=== PATIENT | female | born 1990 | race Caucasian/White ===

== ENCOUNTER 2018-04-17 13:15 | Emergency (ER) | payer OTHER ==
[~2018-04-17] VITALS: Ht 160 cm; Wt 63.0 kg
[~2018-04-17 13:15] MED LIST: AMLODIPINE5 M1 PO; ASPIRIN CHILDRE81 MG PO; FAMOTIDINE20 MG PO; FEMARA2.5 MG PO; PREDNISONE PO; ZESTRIL20 MG PO
[2018-04-17 13:19] VITALS: BP 119/82; Ht 160 cm; Wt 63.0 kg
== END 2018-04-17 13:40 | disposition home or self-care (01) ==
LOC: ED 13:15
DX: J30.9 Allergic rhinitis, unspecified (principal); Z88.0 Allergy status to penicillin

== ENCOUNTER 2018-08-07 08:32 | Emergency (ER) | payer OTHER ==
[2018-08-07 08:43] VITALS: Ht 160 cm
[2018-08-07 09:38] LABS: CALCIUM 8.8 mg/dL (8.5-10.1); CARBON DIOXIDE 31.1 mmol/L (21-32); CHLORIDE SERUM 105 mmol/L (98-107); CREATININE SERUM 0.7 mg/dL (0.6-1.0); GFR1 > 60 mL/min; GLUCOSE SERUM 63 mg/dL (74-106); POTASSIUM SERUM 3.4 mmol/L (3.5-5.1); SODIUM SERUM 140 mmol/L (136-145)
[2018-08-07 09:39] LABS: C REACTIVE PROTEIN < 0.2 mg/dL (<=0.9)
[2018-08-07 11:12] LABS: BASOPHIL % 0.9 % (0-2); PLATELET COUNT 136 x10^3mcL (130-400); RED CELL DISTRIBUTION WIDTH 13.9 % (11.5-14.5)
[2018-08-07 11:14] LABS: ERYTHROCYTE SED RATE 9 mm/hr (0-20)
[2018-08-07 11:48] VITALS: BP 117/54
== END 2018-08-07 11:48 | disposition home or self-care (01) ==
LOC: ED 08:32
PROVIDERS: Specialist
DX: R10.2 Pelvic and perineal pain (principal); Z88.0 Allergy status to penicillin; Z98.890 Other specified postprocedural states
CPT/HCPCS: 36415; 87491; 87591

== ENCOUNTER 2019-08-03 18:22 | Emergency (ER) | payer OTHER ==
[~2019-08-03] VITALS: Ht 160 cm; Wt 62.1 kg
[2019-08-03 18:29] VITALS: Ht 160 cm; Wt 62.1 kg
[2019-08-03 20:20] LABS: microscopic required? NO
[2019-08-03 20:26] LABS: urine erythrocyte NEGATIVE (NEGATIVE)
[2019-08-03 20:29] LABS: BASOPHIL % 0.6 % (0-2); PLATELET COUNT 153 x10^3mcL (130-400); RED CELL DISTRIBUTION WIDTH 13.6 % (11.5-14.5)
[2019-08-03 20:44] LABS: CALCIUM 8.9 mg/dL (8.5-10.1); CARBON DIOXIDE 30.9 mmol/L (21-32); CHLORIDE SERUM 103 mmol/L (98-107); CREATININE SERUM 0.6 mg/dL (0.6-1.0); GFR1 > 60 mL/min; GLUCOSE SERUM 86 mg/dL (74-106); POTASSIUM SERUM 3.9 mmol/L (3.5-5.1); SODIUM SERUM 139 mmol/L (136-145)
[2019-08-03 20:44] LABS: AMPHETAMINE QUAL UR NONE DETECTED (See below)
[2019-08-03 20:49] LABS: ALBUMIN 4.2 g/dL (3.4-5.0); ALKALINE PHOSPHATASE 76 U/L (46-116); ALT/SGPT 12 U/L (14-59); AST/SGOT 10 U/L (15-37); CHOLESTEROL 140 mg/dL (<200); HDL CHOLESTEROL 46 mg/dL (40-60); LIPASE 168 IU/L (73-393); TOTAL PROTEIN, SERUM 7.4 g/dL (6.4-8.2)
[2019-08-03 22:01] VITALS: BP 100/53
[2019-08-05 05:08] LABS: RAPID PLASMA REAGIN Non Reactive (Non Reactive)
== END 2019-08-03 22:30 | disposition home or self-care (01) ==
LOC: ED 18:22
PROVIDERS: Emergency Medicine
DX: R07.89 Other chest pain (principal); Z11.3 Encounter for screening for infections with a predominantly sexual mode of transmission; Z88.0 Allergy status to penicillin
CPT/HCPCS: 83880; 85378; 87491; 87591; G0480; J1885; J3490; Q0092

== ENCOUNTER 2019-12-22 07:49 | Emergency (ER) | payer OTHER ==
[~2019-12-22] VITALS: Ht 160 cm; Wt 64.0 kg
[2019-12-22 07:58] VITALS: Ht 160 cm; Wt 64.0 kg
[2019-12-22 08:53] LABS: BASOPHIL % 0.5 % (0-2); PLATELET COUNT 150 x10^3mcL (130-400); RED CELL DISTRIBUTION WIDTH 13.3 % (11.5-14.5)
[2019-12-22 10:04] LABS: CALCIUM 8.9 mg/dL (8.5-10.1); CARBON DIOXIDE 28.7 mmol/L (21-32); CHLORIDE SERUM 105 mmol/L (98-107); CREATININE SERUM 0.7 mg/dL (0.6-1.0); GFR1 > 60 mL/min; GLUCOSE SERUM 91 mg/dL (74-106); POTASSIUM SERUM 4.2 mmol/L (3.5-5.1); SODIUM SERUM 140 mmol/L (136-145)
[2019-12-22 10:13] LABS: ALBUMIN 4.4 g/dL (3.4-5.0); ALKALINE PHOSPHATASE 74 U/L (46-116); ALT/SGPT 21 U/L (14-59); AST/SGOT 12 U/L (15-37); BILIRUBIN TOTAL 1.3 mg/dL (0.20-1.00); LIPASE 166 IU/L (73-393); TOTAL PROTEIN, SERUM 7.9 g/dL (6.4-8.2)
[2019-12-22 10:57] VITALS: BP 110/78
== END 2019-12-22 10:57 | disposition home or self-care (01) ==
LOC: ED 07:49
PROVIDERS: Emergency Medicine
DX: K59.00 Constipation, unspecified (principal); Z88.0 Allergy status to penicillin; Z98.890 Other specified postprocedural states
CPT/HCPCS: 36415

== ENCOUNTER 2020-09-28 09:26 | Emergency (ER) | payer OTHER ==
[~2020-09-28] VITALS: Ht 162.6 cm; Wt 62.1 kg
[2020-09-28 09:33] VITALS: Ht 162.6 cm; Wt 62.1 kg
[2020-09-28 09:55] LABS: BASOPHIL % 0.4 % (0-2); PLATELET COUNT 150 x10^3mcL (130-400); RED CELL DISTRIBUTION WIDTH 13.1 % (11.5-14.5)
[2020-09-28 10:05] LABS: CALCIUM 8.6 mg/dL (8.5-10.1); CHLORIDE SERUM 103 mmol/L (98-107); CREATININE SERUM 0.7 mg/dL (0.6-1.0); GFR1 > 60 mL/min; GLUCOSE SERUM 99 mg/dL (74-106); POTASSIUM SERUM 3.4 mmol/L (3.5-5.1); SODIUM SERUM 139 mmol/L (136-145)
[2020-09-28 10:10] LABS: ALBUMIN 4.2 g/dL (3.4-5.0); ALKALINE PHOSPHATASE 77 U/L (46-116); ALT/SGPT 15 U/L (14-59); AST/SGOT 12 U/L (15-37); BILIRUBIN TOTAL 1.3 mg/dL (0.20-1.00); LIPASE 142 IU/L (73-393); TOTAL PROTEIN, SERUM 7.3 g/dL (6.4-8.2)
[2020-09-28 12:13] VITALS: BP 124/75
== END 2020-09-28 12:13 | disposition home or self-care (01) ==
LOC: ED 09:26
PROVIDERS: Emergency Medicine
DX: K59.00 Constipation, unspecified (principal); Z88.0 Allergy status to penicillin